=== PATIENT | female | born 1995 | race Hispanic/Latino ===

== ENCOUNTER → 2018-02-22 | Day surgery (SDC) | payer BC ==
[~2018-02-22] MED LIST: BIOTIN; GAS-X PO; MIDAZOLAM HCL 2 MG/2 ML VIAL ONE; PHAZYME PO; PROPOFOL IV EMULSION 10 MG/ML 50 ML VIAL ONE; [UNRECOGNIZED DRUG - OTHER]
--- NOTE | 2018-02-22 09:14 | Operative Report ---
DATE OF PROCEDURE: February 22, 2018 PROCEDURE PERFORMED: Esophagogastroduodenoscopy with biopsies. INDICATION FOR PROCEDURE: Acid reflux. MEDICATION: Patient was done under MAC. Please see anesthesiologist's note. PROCEDURE: With the patient in the left lateral decubitus position, the flexible fiberoptic Olympus gastroscope was introduced into the esophagus under direct visualization without any difficulty. There was some patchy erythema noted in the distal esophagus. The scope was then advanced with ease into the stomach, and the mucosa overlying the antrum and the body revealed some diffuse erythema and low-grade to moderate edema. Biopsies were obtained and sent to stain for H. pylori. Moderate amount of retained undigested food was noted in the stomach precluding visualization of the upper body and part of the fundus. The pylorus was of normal contour and shape. It was intubated with ease, and the scope was advanced all the way to the 2nd portion of the duodenum. The scope was then withdrawn slowly. Mucosa overlying the proximal 2nd portion and the duodenal bulb appeared to be within normal limits. The scope was then withdrawn back into the stomach and retroflexed, and whatever was visualized of the fundus appeared to be within normal limits. The cardia also was within normal limits. The scope was then straightened out. The stomach was decompressed. The scope was subsequently withdrawn. Patient tolerated the procedure well. IMPRESSION 1. Mild distal esophagitis. 2. Gastritis, biopsied. Biopsies sent to stain for H. pylori. 3. Moderate amount of retained undigested food in stomach precluding visualization of proximal body and part of the fundus. PLAN: Follow up histology. Initiate Protonix 40 mg 1 p.o. q.a.m. a.c. Job#: [id number]
[2018-02-23 21:08] LABS: ENDOMYSIAL ANTIBODIES, IGA Negative (Negative)
== END | disposition home or self-care (01) ==
LOC: OR 06:19
PROVIDERS: ATTEND Internal Medicine Gastroenterology
DX: K21.0 Gastro-esophageal reflux disease with esophagitis (principal); Z88.0 Allergy status to penicillin; R10.10 Upper abdominal pain, unspecified; R14.2 Eructation; K59.00 Constipation, unspecified; K29.70 Gastritis, unspecified, without bleeding; Z01.812 Encounter for preprocedural laboratory examination
CPT/HCPCS: 43239; 81025; 82784; 83516; 86256; J2250